=== PATIENT | female | born 1945 | race Caucasian/White ===

== ENCOUNTER → 2018-07-12 | Outpatient (CLI) | payer OTHER ==
[2018-07-12 14:40] LABS: BASO % 0.4 % (0.0-1.0); EOS # 0.1 10^3/uL (0.0-0.50); EOS % 1.8 % (0.0-3.0); HEMATOCRIT 29.9 % (36.0-47.0); HEMOGLOBIN 9.9 g/dl (12.0-15.5); IMMATURE GRANULOCYTE % 0.2 % (0-3.0); LYMPH # 1.2 10^3/uL (1.5-4.5); MEAN CORPUSCULAR HEMOGLOBIN 30.4 pg (27.0-33.0); MEAN CORPUSCULAR HGB CONC 33.1 g/dl (32.0-36.5); MEAN CORPUSCULAR VOLUME 91.7 fl (80.0-96.0); MONO # 0.4 10^3/uL (0.0-0.8); MONO % 7.4 % (0.0-5.0); NEUTROPHILS # 3.3 10^3/uL (1.8-7.7); NEUTROPHILS % 66.2 % (36.0-66.0); PLATELET COUNT, AUTOMATED 255 10^3/uL (150-450); RED BLOOD COUNT 3.26 10^6/uL (4.00-5.40); RED CELL DISTRIBUTION WIDTH 13.2 % (11.5-14.5)
[2018-07-12 15:19] LABS: ALBUMIN 2.2 GM/DL (3.2-5.2); ALBUMIN/GLOBULIN RATIO 0.79 (1.00-1.93); ALKALINE PHOSPHATASE 72 U/L (45-117); ALT/SGPT 20 U/L (12-78); ANION GAP 10 MEQ/L (8-16); AST/SGOT 17 U/L (7-37); BILIRUBIN,TOTAL 0.2 MG/DL (0.2-1.0); BLOOD UREA NITROGEN 14 MG/DL (7-18); CALCIUM LEVEL 8.2 MG/DL (8.8-10.2); CARBON DIOXIDE LEVEL 26 MEQ/L (21-32); CHLORIDE LEVEL 106 MEQ/L (98-107); GLOMERULAR FILTRATION RATE > 60.0 (>39); GLUCOSE, FASTING 85 MG/DL (70-100); SODIUM LEVEL 142 MEQ/L (136-145)
== END ==
LOC: M WUC 12:34
DX: I10 Essential (primary) hypertension (principal)
CPT/HCPCS: 80053

== ENCOUNTER 2018-07-19 11:20 | Day surgery (SDC) | payer OTHER ==
[~2018-07-19 11:20] MED LIST: ACETAMINOPHEN 325 MG TAB PO
[2018-07-19] MEDS: PHENYLEPHRINE 2.5% OPHTH SOL 2ML OD ×2 (12:40)
[2018-07-19] MEDS: TROPICAMIDE 1% OPHTH SOLN 2ML OD ×2 (12:40)
[2018-07-19] MEDS: LIDOCAINE 3.5 % 1ML OPHTH TOPICAL GEL OU ×2 (12:41)
[2018-07-19] MEDS: OFLOXACIN 0.3 % (OCUFLOX) OPTH SOL 5ML OD ×2 (12:41)
[2018-07-19] MEDS: CYCLOPENTOLATE 2% OPHTH SOLN 2ML BTL OD ×2 (12:41)
[2018-07-19] MEDS ORDERED: MIDAZOLAM INJ 2 MG/2 ML VIAL (J2250) As Ordered ×2 (13:37)
[2018-07-19] MEDS ORDERED: fentaNYL 100 MCG/2 ML INJECTION (J3010) As Ordered ×2 (13:37)
[2018-07-19] MEDS: PHENYLEPHRINE HCL 10 % OPHTH. SOL 5ML OD ×2 (13:40)
[2018-07-19] MEDS: MOXIFLOXACIN IN BSS 0.25MG/0.25ML INTRACAMERAL INJ (OR EYE ONLY)(J2280) As Ordered (13:40)
[2018-07-19] MEDS: BSS with VANC/TOB/EPI for EYE CASES IR ×2 (13:40)
[2018-07-19] MEDS: POVIDONE-IODINE 5% OPHTH PREP SOL 30ML As Ordered ×2 (13:40)
[2018-07-19] MEDS: HEALON DUET (HEALON 10MG/ML 0.55ML & HEALON ENDOCOAT 30MG/ML 0.85ML) As Ordered ×2 (13:40)
[2018-07-19] MEDS: LIDOCAINE 1% SDV 5 ML VIAL As Ordered ×2 (13:40)
[2018-07-19] MEDS: TRIAMCINOLONE PRES FR 40 MG/ML 1ML(TRIESENCE)(OR EYE ONLY)(J3300 PER 1MG) As Ordered ×2 (13:40)
[2018-07-19] MEDS ORDERED: HEALON DUET (HEALON 10MG/ML 0.55ML & HEALON ENDOCOAT 30MG/ML 0.85ML) As Ordered ×2 (13:48)
[2018-07-19] MEDS ORDERED: TRIMETHOBENZAMIDE 300 MG CAP PO ×2 (14:30)
[2018-07-19] MEDS: AcetaZOLAMIDE 500 MG ER CAP PO ×2 (14:35)
== END 2018-07-19 14:55 | disposition home or self-care (01) ==
LOC: M SDC 11:20
DX: H25.9 Unspecified age-related cataract (principal); Z79.899 Other long term (current) drug therapy
CPT/HCPCS: 66984

== ENCOUNTER 2018-07-26 08:58 | Day surgery (SDC) | payer OTHER ==
[~2018-07-26 08:58] MED LIST changes: +MIDAZOLAM INJ 2 MG/2 ML VIAL (J2250) As Ordered; +PHENYLEPHRINE HCL 10 % OPHTH. SOL 5ML OS; +fentaNYL 100 MCG/2 ML INJECTION (J3010) As Ordered
[2018-07-26] MEDS: LIDOCAINE 3.5 % 1ML OPHTH TOPICAL GEL OU (09:23)
[2018-07-26] MEDS: TROPICAMIDE 1% OPHTH SOLN 2ML OS (09:23)
[2018-07-26] MEDS: CYCLOPENTOLATE 2% OPHTH SOLN 2ML BTL OS (09:23)
[2018-07-26] MEDS: OFLOXACIN 0.3 % (OCUFLOX) OPTH SOL 5ML OS (09:23)
[2018-07-26] MEDS: PHENYLEPHRINE 2.5% OPHTH SOL 2ML OS (09:23)
[2018-07-26] MEDS ORDERED: PHENYLEPHRINE 2.5% OPHTH SOL 2ML As Ordered (09:37)
[2018-07-26] MEDS: LIDOCAINE 1% SDV 5 ML VIAL As Ordered (09:39)
[2018-07-26] MEDS: POVIDONE-IODINE 5% OPHTH PREP SOL 30ML As Ordered (09:39)
[2018-07-26] MEDS: HEALON DUET (HEALON 10MG/ML 0.55ML & HEALON ENDOCOAT 30MG/ML 0.85ML) As Ordered (09:40)
[2018-07-26] MEDS: MOXIFLOXACIN IN BSS 0.25MG/0.25ML INTRACAMERAL INJ (OR EYE ONLY)(J2280) As Ordered (09:40)
[2018-07-26] MEDS: TRIAMCINOLONE PRES FR 40 MG/ML 1ML(TRIESENCE)(OR EYE ONLY)(J3300 PER 1MG) As Ordered (09:40)
[2018-07-26] MEDS: BSS with VANC/TOB/EPI for EYE CASES IR (09:41)
[2018-07-26] MEDS ORDERED: HEALON DUET (HEALON 10MG/ML 0.55ML & HEALON ENDOCOAT 30MG/ML 0.85ML) As Ordered (09:45)
[2018-07-26] MEDS ORDERED: TRIMETHOBENZAMIDE 300 MG CAP PO (10:15)
[2018-07-26] MEDS: AcetaZOLAMIDE 500 MG ER CAP PO (10:28)
== END 2018-07-26 10:53 | disposition home or self-care (01) ==
LOC: M SDC 08:58
DX: H26.9 Unspecified cataract (principal); M79.7 Fibromyalgia; R03.0 Elevated blood-pressure reading, without diagnosis of hypertension; Z88.6 Allergy status to analgesic agent; Z78.0 Asymptomatic menopausal state
CPT/HCPCS: 66984

== ENCOUNTER → 2018-09-27 | Outpatient (CLI) | payer OTHER ==
[2018-09-27 15:28] LABS: ALBUMIN 2.2 GM/DL (3.2-5.2); ALBUMIN/GLOBULIN RATIO 0.88 (1.00-1.93); ALKALINE PHOSPHATASE 66 U/L (45-117); ALT/SGPT 27 U/L (12-78); ANION GAP 3 MEQ/L (8-16); AST/SGOT 23 U/L (7-37); BILIRUBIN,TOTAL 0.2 MG/DL (0.2-1.0); BLOOD UREA NITROGEN 18 MG/DL (7-18); CALCIUM LEVEL 7.9 MG/DL (8.8-10.2); CARBON DIOXIDE LEVEL 33 MEQ/L (21-32); CHLORIDE LEVEL 110 MEQ/L (98-107); CREATININE FOR GFR 0.98 MG/DL (0.55-1.30); FERRITIN 73 NG/ML (8-252); GLOMERULAR FILTRATION RATE 59.7 (>39); GLUCOSE, FASTING 83 MG/DL (70-100); IRON (FE) 71 UG/DL (50-170); POTASSIUM SERUM 5.5 MEQ/L (3.5-5.1); SODIUM LEVEL 146 MEQ/L (136-145); TOTAL IRON BINDING CAPACITY 229 UG/DL (250-450); TOTAL PROTEIN 4.7 GM/DL (6.4-8.2)
[2018-09-27 15:29] LABS: BASO % 0.8 % (0.0-1.0); EOS # 0.1 10^3/uL (0.0-0.50); EOS % 1.4 % (0.0-3.0); HEMATOCRIT 30.2 % (36.0-47.0); HEMOGLOBIN 9.6 g/dl (12.0-15.5); IMMATURE GRANULOCYTE % 0.2 % (0-3.0); LYMPH # 1.3 10^3/uL (1.5-4.5); LYMPH % 26.2 % (24.0-44.0); MEAN CORPUSCULAR HEMOGLOBIN 30.4 pg (27.0-33.0); MEAN CORPUSCULAR HGB CONC 31.8 g/dl (32.0-36.5); MEAN CORPUSCULAR VOLUME 95.6 fl (80.0-96.0); MONO # 0.3 10^3/uL (0.0-0.8); MONO % 5.7 % (0.0-5.0); NEUTROPHILS # 3.4 10^3/uL (1.8-7.7); NEUTROPHILS % 65.7 % (36.0-66.0); PLATELET COUNT, AUTOMATED 251 10^3/uL (150-450); RED BLOOD COUNT 3.16 10^6/uL (4.00-5.40); RED CELL DISTRIBUTION WIDTH 13.3 % (11.5-14.5); RETIC HEMOGLOBIN EQUIVALENT 34.1 pg (24-36); RETICULOCYTE # 36.3 10^9/L (17-77); RETICULOCYTE % 1.2 % (0.5-1.5); WHITE BLOOD COUNT 5.1 10^3/uL (4.0-10.0)
[2018-09-27 15:36] LABS: FOLATE 19.2 NG/ML; VITAMIN B12 LEVEL 300 PG/ML
== END ==
LOC: M WUC 11:39
DX: D64.9 Anemia, unspecified (principal)
CPT/HCPCS: 82746

== ENCOUNTER → 2022-07-14 | Outpatient (CLI) | payer OTHER ==
[~2022-07-14] MED LIST changes: -ACETAMINOPHEN 325 MG TAB PO; +LISINOP/HCTZ; -MIDAZOLAM INJ 2 MG/2 ML VIAL (J2250) As Ordered; -PHENYLEPHRINE HCL 10 % OPHTH. SOL 5ML OS; -fentaNYL 100 MCG/2 ML INJECTION (J3010) As Ordered
[2022-07-14 17:55] LABS: CALCIUM LEVEL 8.8 MG/DL (8.8-10.2); CREATININE FOR GFR 1.01 MG/DL (0.55-1.30); POTASSIUM SERUM 4.4 MEQ/L (3.5-5.1)
== END ==
LOC: M WUC 14:53
PROVIDERS: ATTEND Family Medicine
DX: I10 Essential (primary) hypertension (principal)

== ENCOUNTER 2022-08-03 10:28 | Observation (INO) | payer MEDICARE ==
[~2022-08-03] VITALS: Ht 160 cm; Wt 66.4 kg
[2022-08-03] MEDS ORDERED: LOSA50TA28 PO (10:36)
[2022-08-03] MEDS ORDERED: [UNRECOGNIZED DRUG - CODE] PO (10:36)
[2022-08-03 11:24] LABS: BASO # 0.1 10^3/uL (0.0-0.2); BASO % 0.4 % (0.0-1.0); EOS % 0.1 % (0.0-3.0); HEMATOCRIT 39.1 % (36.0-47.0); HEMOGLOBIN 12.6 g/dl (12.0-15.5); LYMPH # 0.7 10^3/uL (1.5-5.0); LYMPH % 5.2 % (24.0-44.0); MEAN CORPUSCULAR HEMOGLOBIN 30.4 pg (27.0-33.0); MEAN CORPUSCULAR HGB CONC 32.2 g/dl (32.0-36.5); MEAN CORPUSCULAR VOLUME 94.4 fl (80.0-96.0); MONO # 0.5 10^3/uL (0.0-0.8); MONO % 3.3 % (2.0-8.0); NEUTROPHILS # 12.6 10^3/uL (1.5-8.5); NEUTROPHILS % 90.4 % (36.0-66.0); PLATELET COUNT, AUTOMATED 265 10^3/uL (150-450); RED BLOOD COUNT 4.14 10^6/uL (4.00-5.40); WHITE BLOOD COUNT 13.9 10^3/uL (4.0-10.0)
[2022-08-03] MEDS ORDERED: ACETAMINOPHEN TAB 650MG DOSE (2X325MG) PO ONE (11:45)
[2022-08-03 11:52] LABS: CK-MB VALUE MASS 2.2 NG/ML (<3.6); MB/CK RELATIVE INDEX 1.59 (< OR =4)
[2022-08-03 12:00] LABS: CALCIUM LEVEL 9.4 MG/DL (8.8-10.2); CREATININE FOR GFR 1.06 MG/DL (0.55-1.30); GLOMERULAR FILTRATION RATE 53.9 (>39); POTASSIUM SERUM 5.5 MEQ/L (3.5-5.1); THYROID STIMULATING HORMONE 1.75 uIU/ML (0.358-3.740)
[2022-08-03 13:51] LABS: CK-MB VALUE MASS 2.2 NG/ML (<3.6); MB/CK RELATIVE INDEX 1.82 (< OR =4)
[2022-08-03] MEDS ORDERED: [UNRECOGNIZED DRUG - CODE] PO (14:16)
[2022-08-03] MEDS ORDERED: HOME MED LIST COMPLETE! XX SCH (14:20)
[2022-08-03] MEDS ORDERED: LABETALOL 100MG/20ML VIAL IV STA (14:43)
[2022-08-03] MEDS ORDERED: LABETALOL 100MG/20ML VIAL IV PRN (14:50)
[2022-08-03 15:35] LABS: CHOLESTEROL RISK RATIO 2.621 (<5)
[2022-08-03 15:40] LABS: RSV AMPLIFICATION NEGATIVE (NEGATIVE)
[2022-08-03 15:40] LABS: HEMOGLOBIN A1c 5.4 %
[2022-08-03 16:35] VITALS: BP 150/67
[2022-08-03 19:57] VITALS: BP 120/54
[2022-08-04 00:04] VITALS: BP 141/65
[2022-08-04] MEDS: ACETAMINOPHEN TAB 650MG DOSE (2X325MG) PO PRN ×2 (00:11→08:31)
[2022-08-04 03:52] VITALS: BP 146/64
[2022-08-04 06:20] LABS: HEMATOCRIT 32.8 % (36.0-47.0); MEAN CORPUSCULAR HEMOGLOBIN 30.5 pg (27.0-33.0); MEAN CORPUSCULAR HGB CONC 32.3 g/dl (32.0-36.5); MEAN CORPUSCULAR VOLUME 94.5 fl (80.0-96.0); PLATELET COUNT, AUTOMATED 216 10^3/uL (150-450); RED BLOOD COUNT 3.47 10^6/uL (4.00-5.40); WHITE BLOOD COUNT 6.9 10^3/uL (4.0-10.0)
[2022-08-04 06:40] LABS: HEMOGLOBIN 10.6 g/dl (12.0-15.5)
[2022-08-04 06:55] LABS: ALBUMIN 3.1 GM/DL (3.2-5.2); BILIRUBIN,TOTAL 0.4 MG/DL (0.2-1.0); CALCIUM LEVEL 8.5 MG/DL (8.8-10.2); CREATININE FOR GFR 1.06 MG/DL (0.55-1.30); GLOMERULAR FILTRATION RATE 53.9 (>39); POTASSIUM SERUM 3.9 MEQ/L (3.5-5.1); TOTAL PROTEIN 6.3 GM/DL (6.4-8.2)
[2022-08-04 08:00] VITALS: BP 140/60
[2022-08-04 08:30] VITALS: BP 150/67
[2022-08-04] MEDS ORDERED: ENOXAPARIN 40MG/0.4ML SYRINGE (J1650 PER 10MG) SC SCH (09:00)
[2022-08-04] MEDS ORDERED: ATORVASTATIN 20 MG TAB PO SCH (09:00)
[2022-08-04] MEDS ORDERED: ATOR1TAB21 PO (11:37)
[2022-08-04] MEDS ORDERED: AMLO1TAB25 PO (11:37)
== END 2022-08-04 13:26 | disposition home or self-care (01) ==
LOC: M ED 10:28 → M ED INP 10:29 → ENRESERV 16:08 → M PCU 16:41
PROVIDERS: ADMIT Internal Medicine; ATTEND Internal Medicine
DX: R55 Syncope and collapse (principal); W18.30XA Fall on same level, unspecified, initial encounter; Y92.002 Bathroom of unspecified non-institutional (private) residence as the place of occurrence of the external cause; I10 Essential (primary) hypertension; E87.5 Hyperkalemia; D72.829 Elevated white blood cell count, unspecified; Z79.899 Other long term (current) drug therapy; Z88.8 Allergy status to other drugs, medicaments and biological substances
CPT/HCPCS: 36415; 70450; 71101; 72072; 72125; 80048; 80053; 80061; 82550; 82553; 83036; 84443; 84484; 85025; 85027; 87631; 93005; 93041; 94760; 96372; 99285; G0378; J1650

== ENCOUNTER 2024-10-23 15:04 | Inpatient (IN) | payer MEDICARE ==
[~2024-10-23] VITALS: Ht 160 cm; Wt 68.5 kg
[~2024-10-23 15:04] MED LIST changes: +AMLO1TAB25 PO; +ATOR1TAB21 PO; +LOSA50TA28 PO; +[UNRECOGNIZED DRUG - CODE] PO; +[UNRECOGNIZED DRUG - CODE] PO
[2024-10-23] MEDS ORDERED: ISOVUE-370 76% 100ML VIAL As Ordered ONE (15:29)
[2024-10-23 15:44] LABS: BASO % 0.5 % (0.0-1.0); EOS % 0.1 % (0.0-3.0); HEMATOCRIT 37.7 % (36.0-47.0); HEMOGLOBIN 12.5 g/dl (12.0-15.5); LYMPH % 12.7 % (24.0-44.0); MEAN CORPUSCULAR HEMOGLOBIN 29.8 pg (27.0-33.0); MEAN CORPUSCULAR HGB CONC 33.2 g/dl (32.0-36.5); MEAN CORPUSCULAR VOLUME 89.8 fl (80.0-96.0); MONO # 0.4 10^3/uL (0.0-0.8); MONO % 4.3 % (2.0-8.0); NEUTROPHILS # 6.6 10^3/uL (1.5-8.5); NEUTROPHILS % 82.2 % (36.0-66.0); PLATELET COUNT, AUTOMATED 257 10^3/uL (150-450); WHITE BLOOD COUNT 8.1 10^3/uL (4.0-10.0)
[2024-10-23 16:00] LABS: INR 0.91; PARTIAL THROMBOPLASTIN TIME 32.2 SECONDS (24.8-34.2); PROTHROMBIN TIME 12.6 SECONDS (12.5-14.5)
[2024-10-23 16:03] VITALS: BP 186/78; O2SAT 99
[2024-10-23 16:23] VITALS: BP 189/75; O2SAT 96
[2024-10-23 16:46] VITALS: O2SAT 99
[2024-10-23 17:14] VITALS: BP 172/73; O2SAT 98
[2024-10-23] MEDS ORDERED: VITA100018 PO (17:42)
[2024-10-23] MEDS ORDERED: THERTAB52 PO (17:42)
[2024-10-23] MEDS ORDERED: HOME MED LIST COMPLETE! XX SCH (17:45)
[2024-10-23] MEDS ORDERED: ACETAMINOPHEN 325 MG TAB PO PRN (18:05)
[2024-10-23 18:10] VITALS: BP 181/76; O2SAT 97
[2024-10-23 19:49] LABS: CALCIUM LEVEL 9.4 MG/DL (8.3-10.6)
[2024-10-23 19:50] LABS: CHOLESTEROL RISK RATIO 3.01 (<5); HDL CHOLESTEROL 63.3 MG/DL (>40); LDL CHOLESTEROL 115.5 MG/DL (<100); NON-HDL-C 127.7 MG/DL
[2024-10-23 19:53] LABS: TOTAL 25(OH) VITAMIN D 14.9 NG/ML (20.0-100.0)
[2024-10-23 19:54] LABS: FOLATE 13.13 NG/ML (>5.4)
[2024-10-23 19:54] LABS: HEMOGLOBIN A1c 5.4 % (4.0-6.0)
[2024-10-23 19:59] LABS: THYROID STIMULATING HORMONE 1.397 uIU/ML (0.55-4.78)
[2024-10-23] MEDS: ATORVASTATIN 20 MG TAB PO SCH (20:14)
[2024-10-23] MEDS: CLOPIDOGREL 75 MG TAB PO SCH (20:15)
[2024-10-23] MEDS: ASPIRIN 81MG ENTERIC TABLET PO SCH (20:16)
[2024-10-23 21:40] VITALS: BP 196/74; TEMP 98.9; O2SAT 98
[2024-10-24] VITALS: BP 174/60; TEMP 97; O2SAT 98
[2024-10-24 04:00] VITALS: BP 162/76; TEMP 96.7; O2SAT 95
[2024-10-24 06:57] LABS: BASO % 0.5 % (0.0-1.0); EOS # 0.1 10^3/uL (0.0-0.5); EOS % 2.4 % (0.0-3.0); HEMATOCRIT 33.7 % (36.0-47.0); HEMOGLOBIN 11.1 g/dl (12.0-15.5); LYMPH # 1.6 10^3/uL (1.5-5.0); LYMPH % 27.4 % (24.0-44.0); MEAN CORPUSCULAR HEMOGLOBIN 29.9 pg (27.0-33.0); MEAN CORPUSCULAR HGB CONC 32.9 g/dl (32.0-36.5); MEAN CORPUSCULAR VOLUME 90.8 fl (80.0-96.0); MONO # 0.5 10^3/uL (0.0-0.8); MONO % 7.8 % (2.0-8.0); NEUTROPHILS # 3.6 10^3/uL (1.5-8.5); NEUTROPHILS % 61.7 % (36.0-66.0); PLATELET COUNT, AUTOMATED 228 10^3/uL (150-450); RED BLOOD COUNT 3.71 10^6/uL (4.00-5.40); WHITE BLOOD COUNT 5.8 10^3/uL (4.0-10.0)
[2024-10-24 07:30] LABS: BLOOD UREA NITROGEN 19 MG/DL (9-23); CALCIUM LEVEL 9.2 MG/DL (8.3-10.6); CARBON DIOXIDE LEVEL 28 MMOL/L (20-31); CHLORIDE LEVEL 107 MMOL/L (98-107); CREATININE FOR GFR 0.89 MG/DL (0.55-1.30); GLOMERULAR FILTRATION RATE > 60.0 (>39); GLUCOSE, FASTING 103 MG/DL (74-106); POTASSIUM SERUM 3.9 MMOL/L (3.5-5.1); SODIUM LEVEL 144 MMOL/L (136-145)
[2024-10-24] MEDS: ENOXAPARIN 40MG/0.4ML SYRINGE (J1650 PER 10MG) SC SCH (08:38)
[2024-10-24] MEDS: IRON POLYSAC (NIFEREX) 150 MG CAP PO SCH (12:02)
[2024-10-24] MEDS: VITAMIN D 50,000 UNITS CAPSULE (ERGOCALCIFEROL 1.25MG) PO SCH (12:03)
[2024-10-24 21:35] VITALS: BP 199/79; TEMP 98.3; O2SAT 97
[2024-10-24 23:57] VITALS: BP 186/77; TEMP 98.3; O2SAT 96
[2024-10-25 03:56] VITALS: BP 144/95; TEMP 97.8; O2SAT 95
[2024-10-25 06:23] LABS: BASO % 0.4 % (0.0-1.0); EOS # 0.2 10^3/uL (0.0-0.5); HEMATOCRIT 32.3 % (36.0-47.0); HEMOGLOBIN 10.7 g/dl (12.0-15.5); LYMPH # 1.6 10^3/uL (1.5-5.0); LYMPH % 29.6 % (24.0-44.0); MEAN CORPUSCULAR HEMOGLOBIN 29.7 pg (27.0-33.0); MEAN CORPUSCULAR HGB CONC 33.1 g/dl (32.0-36.5); MEAN CORPUSCULAR VOLUME 89.7 fl (80.0-96.0); MONO # 0.4 10^3/uL (0.0-0.8); MONO % 8.2 % (2.0-8.0); NEUTROPHILS # 3.2 10^3/uL (1.5-8.5); NEUTROPHILS % 58.6 % (36.0-66.0); PLATELET COUNT, AUTOMATED 223 10^3/uL (150-450); WHITE BLOOD COUNT 5.4 10^3/uL (4.0-10.0)
[2024-10-25 07:19] LABS: BLOOD UREA NITROGEN 16 MG/DL (9-23); CALCIUM LEVEL 8.7 MG/DL (8.3-10.6); CARBON DIOXIDE LEVEL 29 MMOL/L (20-31); CHLORIDE LEVEL 107 MMOL/L (98-107); CREATININE FOR GFR 0.89 MG/DL (0.55-1.30); GLOMERULAR FILTRATION RATE > 60.0 (>39); GLUCOSE, FASTING 99 MG/DL (74-106); SODIUM LEVEL 143 MMOL/L (136-145)
[2024-10-25 08:00] VITALS: BP 153/70; TEMP 97.7; O2SAT 95
[2024-10-25 08:14] VITALS: BP 153/70
[2024-10-25 08:22] VITALS: TEMP 97.6; O2SAT 96
[2024-10-25] MEDS ORDERED: amLODIPine 5 MG TAB PO SCH (09:00)
[2024-10-25] MEDS ORDERED: ERGO500029 PO (11:08)
[2024-10-25] MEDS ORDERED: ASPI-655 PO (11:08)
[2024-10-25] MEDS ORDERED: IRON65TA2 PO (11:08)
[2024-10-25] MEDS ORDERED: AMLO1TAB25 PO (11:08)
[2024-10-25] MEDS ORDERED: ATOR80TA59 PO (11:08)
[2024-10-25] MEDS ORDERED: CLOP75TA99 PO (11:08)
[2024-10-25] MEDS ORDERED: ECOT81TA5 PO (11:43)
[2024-10-25] MEDS ORDERED: FERR325T18 PO (11:43)
[2024-10-25] MEDS ORDERED: AMLO10TA PO (11:43)
[2024-10-25 12:20] VITALS: BP 143/64; TEMP 97.8; O2SAT 94
[2024-10-25] MEDS ORDERED: FERR325T82 PO (14:27)
== END 2024-10-25 15:36 | disposition home health service (06) | DRG 66 ==
LOC: M ED 15:04 → EDBD 15:04 → M ED INP 15:05 → M PCU 10-24 21:29 → OBSVTOIN 10-25 11:49
PROVIDERS: ADMIT Student in an Organized Health Care Education/Training Program; ATTEND Student in an Organized Health Care Education/Training Program
PROC: B246ZZZ Ultrasonography of Right and Left Heart (ICD-10-PCS; principal; 2024-10-24)
DX: I63.81 Other cerebral infarction due to occlusion or stenosis of small artery (principal); I10 Essential (primary) hypertension; M35.3 Polymyalgia rheumatica; Z88.6 Allergy status to analgesic agent; E55.9 Vitamin D deficiency, unspecified; E61.1 Iron deficiency; R20.1 Hypoesthesia of skin

== ENCOUNTER → 2024-11-02 | Outpatient (REF) | payer MEDICARE ==
[~2024-11-02] MED LIST changes: +AMLO10TA PO; +ASPI-655 PO; +ATOR80TA59 PO; +CLOP75TA99 PO; +ECOT81TA5 PO; +ERGO500029 PO; +FERR325T18 PO; +FERR325T82 PO; +IRON65TA2 PO; +THERTAB52 PO; +VITA100018 PO
[2024-11-02 13:27] LABS: BASO % 0.6 % (0.0-1.0); EOS # 0.1 10^3/uL (0.0-0.5); EOS % 1.4 % (0.0-3.0); HEMATOCRIT 37.8 % (36.0-47.0); HEMOGLOBIN 12.4 g/dl (12.0-15.5); LYMPH % 16.4 % (24.0-44.0); MEAN CORPUSCULAR HEMOGLOBIN 29.9 pg (27.0-33.0); MEAN CORPUSCULAR HGB CONC 32.8 g/dl (32.0-36.5); MEAN CORPUSCULAR VOLUME 91.1 fl (80.0-96.0); MONO # 0.5 10^3/uL (0.0-0.8); MONO % 7.2 % (2.0-8.0); NEUTROPHILS # 4.7 10^3/uL (1.5-8.5); NEUTROPHILS % 74.1 % (36.0-66.0); PLATELET COUNT, AUTOMATED 295 10^3/uL (150-450); RED BLOOD COUNT 4.15 10^6/uL (4.00-5.40); WHITE BLOOD COUNT 6.3 10^3/uL (4.0-10.0)
[2024-11-02 13:30] LABS: PERCENT SATURATION 18.4 % (13.2-45.0)
[2024-11-02 13:32] LABS: FERRITIN 53.1 NG/ML (7.3-270.7); TOTAL 25(OH) VITAMIN D 25.6 NG/ML (20.0-100.0)
== END ==
LOC: M LABWUC 12:24
PROVIDERS: ATTEND Family Medicine
DX: D64.9 Anemia, unspecified (principal); E55.9 Vitamin D deficiency, unspecified

== ENCOUNTER 2024-11-15 13:02 | Emergency (ER) | payer MEDICARE ==
[~2024-11-15] VITALS: Ht 160 cm; Wt 67.3 kg
[2024-11-15 16:22] LABS: BASO % 0.2 % (0.0-1.0); EOS # 0.1 10^3/uL (0.0-0.5); EOS % 1.3 % (0.0-3.0); HEMATOCRIT 36.5 % (36.0-47.0); HEMOGLOBIN 12.4 g/dl (12.0-15.5); LYMPH # 0.9 10^3/uL (1.5-5.0); MEAN CORPUSCULAR HEMOGLOBIN 29.7 pg (27.0-33.0); MEAN CORPUSCULAR VOLUME 87.3 fl (80.0-96.0); MONO # 0.5 10^3/uL (0.0-0.8); MONO % 8.7 % (2.0-8.0); NEUTROPHILS # 3.8 10^3/uL (1.5-8.5); NEUTROPHILS % 72.4 % (36.0-66.0); PLATELET COUNT, AUTOMATED 243 10^3/uL (150-450); RED BLOOD COUNT 4.18 10^6/uL (4.00-5.40); WHITE BLOOD COUNT 5.3 10^3/uL (4.0-10.0)
[2024-11-15 16:58] LABS: BLOOD UREA NITROGEN 16 MG/DL (9-23); CALCIUM LEVEL 9.4 MG/DL (8.3-10.6); CARBON DIOXIDE LEVEL 27 MMOL/L (20-31); CHLORIDE LEVEL 98 MMOL/L (98-107); CREATININE FOR GFR 0.94 MG/DL (0.55-1.30); GLOMERULAR FILTRATION RATE > 60.0 (>39); GLUCOSE, FASTING 93 MG/DL (74-106); POTASSIUM SERUM 4.8 MMOL/L (3.5-5.1); SODIUM LEVEL 134 MMOL/L (136-145)
[2024-11-15 17:39] VITALS: BP 152/60; TEMP 97.8; O2SAT 100
== END 2024-11-15 17:45 | disposition home or self-care (01) ==
LOC: M ED 13:02
DX: R42 Dizziness and giddiness (principal); I10 Essential (primary) hypertension; M35.3 Polymyalgia rheumatica; Z86.73 Personal history of transient ischemic attack (TIA), and cerebral infarction without residual deficits; Z79.82 Long term (current) use of aspirin; Z79.02 Long term (current) use of antithrombotics/antiplatelets; Z79.899 Other long term (current) drug therapy; Z88.6 Allergy status to analgesic agent

== ENCOUNTER → 2025-02-19 | Outpatient (CLI) | payer MEDICARE ==
[2025-02-19 17:47] LABS: ALBUMIN 4.2 G/DL (3.2-5.2); BASO % 0.6 % (0.0-1.0); BILIRUBIN,TOTAL 0.4 MG/DL (0.3-1.2); CREATININE FOR GFR 0.95 MG/DL (0.55-1.30); EOS # 0.1 10^3/uL (0.0-0.5); EOS % 1.7 % (0.0-3.0); GLOMERULAR FILTRATION RATE 61.7 (>39); HEMATOCRIT 38.1 % (36.0-47.0); HEMOGLOBIN 12.1 g/dl (12.0-15.5); LYMPH # 1.4 10^3/uL (1.5-5.0); MEAN CORPUSCULAR HGB CONC 31.8 g/dl (32.0-36.5); MEAN CORPUSCULAR VOLUME 94.5 fl (80.0-96.0); MONO # 0.5 10^3/uL (0.0-0.8); MONO % 8.2 % (2.0-8.0); NEUTROPHILS # 4.2 10^3/uL (1.5-8.5); NEUTROPHILS % 67.2 % (36.0-66.0); PLATELET COUNT, AUTOMATED 281 10^3/uL (150-450); POTASSIUM SERUM 4.6 MMOL/L (3.5-5.1); RED BLOOD COUNT 4.03 10^6/uL (4.00-5.40); TOTAL PROTEIN 6.9 G/DL (5.7-8.2); WHITE BLOOD COUNT 6.3 10^3/uL (4.0-10.0)
[2025-02-19 17:49] LABS: TOTAL 25(OH) VITAMIN D 30.3 NG/ML (20.0-100.0)
== END ==
LOC: M WUC 13:50
PROVIDERS: ATTEND Family Medicine
DX: D64.9 Anemia, unspecified (principal)

== ENCOUNTER → 2025-07-17 | Outpatient (CLI) | payer MEDICARE ==
[~2025-07-17] MED LIST changes: +AMLO-751 PO; -AMLO10TA PO; -ASPI-655 PO; +ASPI-737 PO
== END ==
LOC: M SOG 12:54
PROVIDERS: ATTEND Neuromusculoskeletal Medicine, Sports Medicine
DX: M25.531 Pain in right wrist (principal)

== ENCOUNTER → 2025-08-20 | Outpatient (CLI) | payer MEDICARE ==
[2025-08-20 18:03] LABS: IRON (FE) 38.0 UG/DL (50-170)
[2025-08-20 18:04] LABS: PERCENT SATURATION 12.5 % (13.2-45.0)
[2025-08-20 18:05] LABS: CALCIUM LEVEL 9.0 MG/DL (8.3-10.6); CARBON DIOXIDE LEVEL 28.0 MMOL/L (20-31); CHLORIDE LEVEL 102.0 MMOL/L (98-107); CREATININE FOR GFR 0.92 MG/DL (0.55-1.30); GLOMERULAR FILTRATION RATE 64.1 (>39); POTASSIUM SERUM 4.8 MMOL/L (3.5-5.1); SODIUM LEVEL 140.0 MMOL/L (136-145)
[2025-08-20 18:07] LABS: BASO # 0.0 10^3/uL (0.0-0.2); BASO % 0.3 % (0.0-1.0); EOS # 0.1 10^3/uL (0.0-0.5); EOS % 1.1 % (0.0-3.0); LYMPH # 1.4 10^3/uL (1.5-5.0); LYMPH % 23.5 % (24.0-44.0); MONO # 0.6 10^3/uL (0.0-0.8); MONO % 9.0 % (2.0-8.0); NEUTROPHILS # 4.1 10^3/uL (1.5-8.5); NEUTROPHILS % 65.9 % (36.0-66.0); PLATELET COUNT, AUTOMATED 245 10^3/uL (150-450); TOTAL 25(OH) VITAMIN D 31.7 NG/ML (20.0-100.0)
[2025-08-20 18:09] LABS: VITAMIN B12 LEVEL 407.0 PG/ML (211-911)
== END ==
LOC: M WUC 14:27
PROVIDERS: ATTEND Family Medicine
DX: E55.9 Vitamin D deficiency, unspecified (principal); D64.9 Anemia, unspecified